=== PATIENT | female | born 1985 | race Caucasian/White ===

== ENCOUNTER 2017-08-31 15:02 | Inpatient (IN) ==
[~2017-08-31 15:02] MED LIST: CLINDAMYCIN INJ 900 MG in PREMIX 1 EACH IV SCH
[2017-08-31] MEDS ORDERED: CITRIC ACID/SODIUM CITRATE 30 ML UDCUP PO ONE (16:17)
[2017-08-31] MEDS ORDERED: CLINDAMYCIN INJ 900 MG in PREMIX 1 EACH IV ONE (16:17)
[2017-08-31] MEDS ORDERED: FAMOTIDINE 20 MG/2 ML VIAL IV ONE (16:17)
[2017-08-31] MEDS ORDERED: LACTATED RINGERS 1,000 ML IV ONE (16:29)
[2017-08-31] MEDS ORDERED: LACTATED RINGERS 1,000 ML IV SCH (16:30)
[2017-08-31] MEDS ORDERED: OXYTOCIN/LR 20 UNIT/1,000 ML BAG IV ONE ×2 (16:31→18:14)
[2017-08-31 16:43] LABS: Basophils # 0.1 10*3/uL (0.0-0.2); Basophils % 0.3 % (0.0-0.8); Eosinophils # 0.1 10*3/uL (0.0-0.87); Eosinophils % 0.5 % (0.00-10.9); Hematocrit 33.2 VOL% (35.7-47.0); Hemoglobin 11.1 GM/DL (12.0-16.0); Immature Granulocytes % 2.2 %; Immature Granulocytes Absolute 0.57 #; Lymphocytes # 5.2 10*3/uL (1.4-4.0); Lymphocytes % 19.9 % (21.3-54.2); Mean Corpuscular HGB Conc 33.4 GM/DL (32-36); Mean Corpuscular Hemoglobin 31 PG (27-34); Mean Platelet Volume 12.7 FL (9.6-12.0); Monocytes # 1.9 10*3/uL (0.11-0.8); Monocytes % 7.1 % (1.7-12.7); Neutrophils # 18.3 10*3/uL (1.4-7.4); Platelet Count 296 T/CUMM (130-400); Red Blood Count 3.61 MC/CUMM (3.8-5.5); Red Cell Distribution Width 13.4 % (9.3-17.3); White Blood Count 26.2 T/CUMM (4-12)
[2017-08-31] MEDS ORDERED: MORPHINE 10 MG/10 ML VIAL ONE (16:53)
[2017-08-31] MEDS ORDERED: BUPIVACAINE SPINAL 0.75% 2 ML AMP SPINAL ONE (16:53)
[2017-08-31] MEDS ORDERED: OXYTOCIN 10 UNIT/ML VIAL ONE (16:53)
[2017-08-31] MEDS ORDERED: fentaNYL 100 MCG/2 ML VIAL ONE (16:53)
[2017-08-31 17:01] LABS: Alanine Aminotransferase 28 U/L (13-56); Albumin 2.8 G/DL (3.4-5.0); Alkaline Phosphatase 212 U/L (45-117); Aspartate Amino Transferase 25 U/L (0-37); Bilirubin,Total < 0.39 MG/DL (0.2-1.0); Blood Urea Nitrogen 12 MG/DL (7-18); Calcium 9.3 MG/DL (8.5-10.1); Glucose 69 MG/DL (74-106); Potassium 3.9 MMOL/L (3.5-5.1); Sodium 136 MMOL/L (136-145); Total Protein 7.4 G/DL (6.4-8.3)
[2017-08-31 17:09] LABS: Band Neutrophils 2 % (0-10); Lymphocytes 16 % (20-55); Segmented Neutrophils 81 % (50-85)
[2017-08-31 17:10] LABS: Platelet Estimate Adequate; Total Cells Counted 100
[2017-08-31] MEDS ORDERED: BISACODYL 10 MG SUPP RECTAL PRN (18:14)
[2017-08-31] MEDS ORDERED: oxyCODONE/ACETAMINOPHEN 5-325 MG TABLET PO PRN (18:14)
[2017-08-31] MEDS ORDERED: MEASLES/MUMPS/RUBELLA VACCINE 0.5 ML VIAL SUBCUT ONE (18:14)
[2017-08-31] MEDS ORDERED: DIPH/TET/ACEL PERT BOOSTER VACCINE 0.5 ML VIAL IM ONE (18:14)
[2017-08-31] MEDS ORDERED: ACETAMINOPHEN 325 MG TABLET PO PRN (18:14)
[2017-08-31] MEDS ORDERED: HYDROCORTISONE 2.5% RECTAL CREAM 30 GM TUBE TOP PRN (18:14)
[2017-08-31] MEDS ORDERED: WITCH HAZEL PADS 100/JAR TOP PRN (18:14)
[2017-08-31] MEDS ORDERED: LANOLIN 50% CREAM 0.3 OZ TUBE TOP PRN (18:14)
[2017-08-31] MEDS ORDERED: RHO(D) IMMUNE GLOBULIN 300 MCG SYRINGE IM ONE (18:14)
[2017-08-31] MEDS ORDERED: BENZOCAINE 20%/MENTHOL 0.5% SPRAY 56 GM CAN TOP PRN (18:14)
[2017-08-31] MEDS ORDERED: ONDANSETRON 4 MG/2 ML VIAL IV PRN (18:14)
[2017-08-31 18:19] LABS: Apearance,Urine CLEAR (Clear); Bilirubin,Urine Negative (Negative); Blood, Urine Negative (Negative); Glucose,Urine (UA) Negative (Negative); Ketones,Urine Negative (Negative); Mucus,Urine Occasional /LPF (Occasional); Nitrite,Urine Negative (Negative); Protein,Urine Negative; RBC,Urine 1 /HPF (0-4); Squamous Epithelial Cell,Urine Occasional /HPF (0-10); Urine Color Straw (Yellow); Urine Specific Gravity 1.008 (1.001-1.035); Urine Urobilinogen < 2.0 EU/DL (0.2-1.0); WBC,Urine 2 /HPF (0-6)
[2017-08-31 18:22] LABS: Cord Arterial Blood HCO3 24.1 MMOL/L
[2017-08-31 18:23] LABS: Cord Venous Blood PCO2 37.9 MMHG; Cord Venous Blood PO2 29.1 MMHG
[2017-08-31] MEDS ORDERED: MORPHINE 10 MG/1 ML VIAL IV PRN (18:23)
[2017-08-31] MEDS ORDERED: MIDAZOLAM 2 MG/2 ML VIAL ONE (18:25)
[2017-08-31 18:26] LABS: Cord Arterial Blood HCO3 24.3 MMOL/L
[2017-08-31 18:30] LABS: Cord Venous Blood HCO3 21.9 MMOL/L; Cord Venous Blood PCO2 35.2 MMHG; Cord Venous Blood PO2 30.5 MMHG
[2017-08-31] MEDS: oxyCODONE/ACETAMINOPHEN 5-325 MG TABLET PO PRN (20:05)
[2017-08-31] MEDS: DOCUSATE SODIUM 100 MG CAPSULE PO SCH (20:53)
[2017-09-01] MEDS: CLINDAMYCIN INJ 900 MG in PREMIX 1 EACH IV SCH ×2 (01:39→09:28)
[2017-09-01] MEDS: oxyCODONE/ACETAMINOPHEN 5-325 MG TABLET PO PRN ×4 (01:46→21:26)
[2017-09-01] MEDS: IBUPROFEN 800 MG TABLET PO PRN ×4 (01:46→23:52)
[2017-09-01 06:43] LABS: Basophils # 0.1 10*3/uL (0.0-0.2); Basophils % 0.2 % (0.0-0.8); Eosinophils # 0.1 10*3/uL (0.0-0.87); Eosinophils % 0.5 % (0.00-10.9); Hematocrit 28.6 VOL% (35.7-47.0); Hemoglobin 9.5 GM/DL (12.0-16.0); Immature Granulocytes Absolute 0.28 #; Lymphocytes # 5.4 10*3/uL (1.4-4.0); Lymphocytes % 19.9 % (21.3-54.2); Mean Corpuscular HGB Conc 33.2 GM/DL (32-36); Mean Corpuscular Hemoglobin 31 PG (27-34); Mean Corpuscular Volume 92.3 FL (87-102); Mean Platelet Volume 12.7 FL (9.6-12.0); Monocytes # 1.7 10*3/uL (0.11-0.8); Monocytes % 6.2 % (1.7-12.7); Neutrophils # 19.7 10*3/uL (1.4-7.4); Neutrophils % 72.2 % (38.7-73.9); Platelet Count 255 T/CUMM (130-400); Red Cell Distribution Width 13.5 % (9.3-17.3); White Blood Count 27.3 T/CUMM (4-12)
[2017-09-01 07:04] LABS: Band Neutrophils 3 % (0-10); Hypochromasia 1+; Lymphocytes 22 % (20-55); Microcytosis Slight; Platelet Estimate Normal; Segmented Neutrophils 73 % (50-85); Total Cells Counted 100
[2017-09-01] MEDS: MULTIVITAMIN (PRENATAL) TABLET PO SCH (09:20)
[2017-09-01] MEDS: DOCUSATE SODIUM 100 MG CAPSULE PO SCH ×2 (09:21→21:26)
[2017-09-01] MEDS: MAGNESIUM HYDROXIDE SUSP 30 ML UDCUP PO PRN (14:07)
[2017-09-01] MEDS ORDERED: ALUMINUM/MAGNES/SIMETH MAX STR 30 ML UDCUP PO PRN (21:21)
[2017-09-01] MEDS: FAMOTIDINE 20 MG TABLET PO SCH (22:25)
[2017-09-02] MEDS: oxyCODONE/ACETAMINOPHEN 5-325 MG TABLET PO PRN ×2 (03:28→12:15)
[2017-09-02 07:13] VITALS: BP 131/82
[2017-09-02] MEDS: MULTIVITAMIN (PRENATAL) TABLET PO SCH ×2 (07:43→10:30)
[2017-09-02] MEDS: DOCUSATE SODIUM 100 MG CAPSULE PO SCH ×2 (07:44→10:30)
[2017-09-02] MEDS: IBUPROFEN 800 MG TABLET PO PRN ×2 (07:44→16:53)
[2017-09-02] MEDS: FAMOTIDINE 20 MG TABLET PO SCH ×2 (07:44→10:30)
[2017-09-02] MEDS: MAGNESIUM HYDROXIDE SUSP 30 ML UDCUP PO PRN (07:46)
== END 2017-09-02 18:10 | disposition home or self-care (01) | DRG 540 ==
LOC: N.LDOUT 15:02 → N.LD 15:05 → N.OB 09-01 03:20
PROVIDERS: ADMIT Specialist; ATTEND Specialist

== ENCOUNTER 2018-09-29 08:37 | Inpatient (IN) ==
[2018-09-29] MEDS ORDERED: ONDANSETRON 4 MG/2 ML VIAL IV STA (09:01)
[2018-09-29] MEDS ORDERED: SODIUM CHLORIDE 0.9% 1,000 ML IV STA (09:01)
[2018-09-29 09:21] LABS: Basophils # 0.1 10*3/uL (0.0-0.2); Basophils % 0.4 % (0.0-0.8); Eosinophils # 0.3 10*3/uL (0.0-0.87); Eosinophils % 1.8 % (0.00-10.9); Hemoglobin 13.1 GM/DL (12.0-16.0); Immature Granulocytes % 0.7 %; Immature Granulocytes Absolute 0.14 #; Lymphocytes # 3.7 10*3/uL (1.4-4.0); Lymphocytes % 19.9 % (21.3-54.2); Mean Corpuscular HGB Conc 32.8 GM/DL (32-36); Mean Corpuscular Volume 93.5 FL (87-102); Mean Platelet Volume 10.8 FL (9.6-12.0); Monocytes % 4.8 % (1.7-12.7); Neutrophils % 72.4 % (38.7-73.9); Platelet Count 289 T/CUMM (130-400); Red Blood Count 4.28 MC/CUMM (3.8-5.5); Red Cell Distribution Width 12.7 % (9.3-17.3); White Blood Count 18.7 T/CUMM (4-12)
[2018-09-29 09:34] LABS: Apearance,Urine CLEAR (Clear); Bacteria,Urine Occasional /HPF (Few); Bilirubin,Urine Negative (Negative); Blood, Urine Negative (Negative); Glucose,Urine (UA) Negative (Negative); Ketones,Urine Negative (Negative); Mucus,Urine Occasional /LPF (Occasional); Nitrite,Urine Negative (Negative); Protein,Urine Negative; RBC,Urine 2 /HPF (0-4); Squamous Epithelial Cell,Urine Occasional /HPF (0-10); Urine Color Yellow (Yellow); Urine Specific Gravity 1.015 (1.001-1.035); Urine Urobilinogen < 2.0 EU/DL (0.2-1.0); WBC,Urine <1 /HPF (0-6)
[2018-09-29 09:43] LABS: Alanine Aminotransferase 37 U/L (13-56); Albumin 3.9 G/DL (3.4-5.0); Alkaline Phosphatase 83 U/L (45-117); Aspartate Amino Transferase 23 U/L (0-37); Bilirubin,Total < 0.39 MG/DL (0.2-1.0); Blood Urea Nitrogen 12 MG/DL (7-18); Calcium 9.3 MG/DL (8.5-10.1); Glucose 70 MG/DL (74-106); Osmolality,Calculated 272.7 MOS/KG (273-304); Total Protein 7.4 G/DL (6.4-8.3)
[2018-09-29] MEDS ORDERED: ONDANSETRON 4 MG/2 ML VIAL IV PRN (16:04)
[2018-09-29] MEDS ORDERED: ACETAMINOPHEN 325 MG TABLET PO PRN (16:04)
[2018-09-29] MEDS ORDERED: BISACODYL 5 MG TABLET PO PRN (16:04)
[2018-09-29] MEDS ORDERED: ALBUTEROL/IPRATROPIUM 3 ML NEB RESP TX PRN (16:04)
[2018-09-29] MEDS ORDERED: MEPERIDINE 25 MG/1 ML VIAL IV PRN (16:07)
[2018-09-29] MEDS ORDERED: MAGNESIUM SULF RIDER 2 GM in PREMIX 1 EACH IV PRN (16:09)
[2018-09-29] MEDS ORDERED: MAGNESIUM SULF RIDER 4 GM in PREMIX 1 EACH IV PRN (16:09)
[2018-09-29] MEDS ORDERED: MEPERIDINE 25 MG/1 ML VIAL IV SCH (16:30)
[2018-09-29] MEDS ORDERED: LEVOFLOXACIN INJ 750 MG in PREMIX 1 EACH IV SCH (16:30)
[2018-09-29] MEDS: LACTATED RINGERS 1,000 ML IV SCH (18:00)
[2018-09-29] MEDS: metroNIDAZOLE INJ 500 MG in PREMIX 1 EACH IV SCH (23:24)
[2018-09-30] MEDS: LACTATED RINGERS 1,000 ML IV SCH ×2 (01:30→06:30)
[2018-09-30] MEDS: KETOROLAC 10 MG TABLET PO PRN ×2 (01:35→13:18)
[2018-09-30 03:59] LABS: Basophils # 0.1 10*3/uL (0.0-0.2); Basophils % 0.3 % (0.0-0.8); Eosinophils # 0.5 10*3/uL (0.0-0.87); Eosinophils % 2.7 % (0.00-10.9); Hematocrit 35.8 VOL% (35.7-47.0); Immature Granulocytes % 0.5 %; Immature Granulocytes Absolute 0.09 #; Lymphocytes # 4.2 10*3/uL (1.4-4.0); Mean Corpuscular HGB Conc 33.5 GM/DL (32-36); Mean Platelet Volume 11.8 FL (9.6-12.0); Monocytes % 5.6 % (1.7-12.7); Neutrophils % 66.9 % (38.7-73.9); Platelet Count 279 T/CUMM (130-400); Red Blood Count 3.85 MC/CUMM (3.8-5.5); Red Cell Distribution Width 12.7 % (9.3-17.3); White Blood Count 17.3 T/CUMM (4-12)
[2018-09-30 04:19] LABS: Alanine Aminotransferase 31 U/L (13-56); Albumin 3.2 G/DL (3.4-5.0); Alkaline Phosphatase 76 U/L (45-117); Aspartate Amino Transferase 17 U/L (0-37); Bilirubin,Total < 0.39 MG/DL (0.2-1.0); Blood Urea Nitrogen 10 MG/DL (7-18); Calcium 8.6 MG/DL (8.5-10.1); Glucose 133 MG/DL (74-106); Osmolality,Calculated 279.4 MOS/KG (273-304); Total Protein 6.4 G/DL (6.4-8.3)
[2018-09-30] MEDS: metroNIDAZOLE INJ 500 MG in PREMIX 1 EACH IV SCH (06:26)
[2018-09-30] MEDS ORDERED: PANTOPRAZOLE 40 MG TABLET PO SCH (09:00)
[2018-09-30] MEDS ORDERED: LIDOCAINE 1%/EPI INJ 20 ML VIAL ONE (10:24)
[2018-09-30] MEDS ORDERED: BUPIVACAINE MPF 0.25% /EPI 30 ML VIAL ONE (10:24)
[2018-09-30] MEDS ORDERED: TISSUE ADHESIVE 1 EACH APPLICATOR TOP ONE (10:24)
[2018-09-30] MEDS ORDERED: FAMOTIDINE 20 MG/2 ML VIAL IV ONE ×2 (10:35→10:38)
[2018-09-30] MEDS ORDERED: CLINDAMYCIN 300 MG/2 ML VIAL ONE (11:37)
[2018-09-30] MEDS ORDERED: CLINDAMYCIN INJ 0 ML IV ONE (11:38)
[2018-09-30] MEDS ORDERED: fentaNYL 100 MCG/2 ML VIAL ONE (12:28)
[2018-09-30] MEDS ORDERED: SEVOFLURANE 1 UNIT/15 MINUTE INH ONE (12:28)
[2018-09-30] MEDS ORDERED: ONDANSETRON 4 MG/2 ML VIAL ONE (12:28)
[2018-09-30] MEDS ORDERED: MIDAZOLAM 2 MG/2 ML VIAL ONE (12:28)
[2018-09-30] MEDS ORDERED: PROPOFOL 200 MG/20 ML VIAL IV ONE (12:28)
[2018-09-30] MEDS ORDERED: GLYCOPYRROLATE 0.4 MG/2 ML VIAL ONE (12:28)
[2018-09-30] MEDS ORDERED: ACETAMINOPHEN 1,000 MG/100 ML VIAL IV ONE (12:29)
[2018-09-30] MEDS ORDERED: ROCURONIUM 100 MG/10 ML VIAL IV ONE (12:29)
[2018-09-30] MEDS ORDERED: NEOSTIGMINE 10 MG/10 ML VIAL ONE (12:29)
[2018-09-30] MEDS ORDERED: LACTATED RINGERS 1,000 ML IV ONE (12:29)
[2018-09-30 13:13] VITALS: BP 117/76
[2018-09-30] MEDS ORDERED: SIMETHICONE CHEW 125 MG TABLET PO PRN (14:52)
== END 2018-09-30 15:13 | disposition home or self-care (01) | DRG 419 ==
LOC: N.ED 08:37 → N.3E 16:04
PROVIDERS: ADMIT Surgery; ATTEND Surgery
PROC: LAPCHOL (2018-09-30 11:12)